=== PATIENT | female | born 1990 | race Two or more races ===

== ENCOUNTER → 2019-03-21 | Emergency (ER) | payer OTHER ==
[~2019-03-21] VITALS: Ht 170.2 cm; Wt 78.0 kg
[~2019-03-21] MED LIST: CIPRO500 MG PO
== END | disposition home or self-care (01) ==
LOC: ER 23:22
DX: N39.0 Urinary tract infection, site not specified (principal); R50.9 Fever, unspecified

== ENCOUNTER 2024-05-16 17:47 | Emergency (ER) | payer OTHER ==
[~2024-05-16] VITALS: Ht 170.2 cm; Wt 105.2 kg
[2024-05-16] MEDS ORDERED: KETOROLAC TROMETHAMINE 60 MG VIAL IM ONE ×2 (20:45→20:52)
[2024-05-16] MEDS ORDERED: ORPHENADRINE CITRATE 30 MG/ML AMPUL IM ONE (20:45)
[2024-05-16] MEDS ORDERED: ORPHENADRINE CITRATE 30 MG/ML AMPUL ONE (20:51)
[2024-05-16] MEDS ORDERED: NORFLEX100MG PO (22:12)
[2024-05-16] MEDS ORDERED: DICLOFENAC SODI50 MG PO (22:12)
== END 2024-05-16 22:37 ==
LOC: ER 17:48
DX: M41.9 Scoliosis, unspecified (principal); M54.6 Pain in thoracic spine; M51.36 Other intervertebral disc degeneration, lumbar region; Z88.0 Allergy status to penicillin; Z88.8 Allergy status to other drugs, medicaments and biological substances